=== PATIENT | male | born 1985 | race Caucasian/White ===

== ENCOUNTER 2021-07-11 16:38 | Emergency (ER) | payer SELFPAY ==
[~2021-07-11] VITALS: Ht 172.7 cm; Wt 70.3 kg
[2021-07-11 16:43] VITALS: BP 127/74
[2021-07-11] MEDS ORDERED: NACL 0.9% 1,000 ML IV SCH (16:55)
[2021-07-11 17:27] LABS: BASOPHILS % (AUTO) 0.5 % (0.0-2.0); EOSINOPHILS # (AUTO) 0.1 K/uL (0-0.4); EOSINOPHILS % (AUTO) 2.1 % (0.0-4.0); HEMATOCRIT 45.4 % (36-52); HEMOGLOBIN 15.8 g/dL (12.0-18.0); LYMPHOCYTES # (AUTO) 2.5 K/uL (2.0-11.5); LYMPHOCYTES % (AUTO) 46.4 % (20.5-51.1); MEAN CORPUSCULAR HEMOGLOBIN 31 pg (27-31); MEAN CORPUSCULAR HGB CONC 35 g/dL (33-37); MEAN CORPUSCULAR VOLUME 87.6 fL (80-94); MONOCYTES # (AUTO) 0.3 K/uL (0.8-1.0); MONOCYTES % (AUTO) 6.3 % (1.7-9.3); NEUTROPHILS # (AUTO) 2.4 K/uL (1.8-7.7); NEUTROPHILS % (AUTO) 44.7 % (42.2-75.2); PLATELET COUNT (AUTO) 233 K/uL (140-450); RED BLOOD CELL COUNT(AUTO) 5.19 MIL/uL (4.20-6.10); RED CELL DISTRIBUTION WIDTH 12.7 % (11.6-13.7); WHITE BLOOD COUNT (AUTO) 5.4 K/uL (4.8-10.8)
[2021-07-11 17:50] LABS: ALBUMIN 4.3 g/dL (3.4-5.0); ANION GAP 14.7 (8-16); CARBON DIOXIDE 26.4 mmol/L (21-32); POTASSIUM 4.1 mmol/L (3.5-5.1); TOTAL BILIRUBIN 0.5 mg/dL (0.0-1.0)
[2021-07-11] MEDS ORDERED: INSULIN REGULAR, HUMAN 100 UNIT/ML VIAL IVP ONE (17:55)
--- NOTE | 2021-07-11 17:55 | NUR ---
PT C/O HYPERGYLCEMIA SENT BY PCP. PT C/O DIZZINESS, POLYURIA, DRY MOUTH X2 WEEKS. IV INSERTED TO LEFT AC #[id number]. PENDING FURTHER ORDERS
--- NOTE | 2021-07-11 18:46 | NUR ---
BS 295
[2021-07-11 18:47] VITALS: BP 108/70
--- NOTE | 2021-07-11 18:47 | NUR ---
PT VERBALIZES DC INSTRUCTIONS. NO ACUTE DISTRESS NOTED. STABLE ON DC.
== END 2021-07-11 18:47 | disposition home or self-care (01) ==
LOC: MED 16:38
DX: E10.65 Type 1 diabetes mellitus with hyperglycemia (principal); Z90.49 Acquired absence of other specified parts of digestive tract
CPT/HCPCS: 36415; 36600; 71045; 80053; 82803; 85025; 87040; 96361; 96374; 99284; J1815; J7030